=== PATIENT | male | born 1935 | race Caucasian/White ===

== ENCOUNTER 2020-11-19 15:23 | Emergency (ER) | payer MEDICARE ==
[~2020-11-19 15:23] MED LIST: BACTRIM DS TAB1 EACH PO; PREDNISONE 10MG10 MG PO
[2020-11-19 18:05] LABS: BASOPHIL 0.8 % (0-2); EOSINOPHIL 3.5 % (0-7); HCT 44.2 % (42.0-52.0); HGB 14.6 g/dl (13.2-18.0); LYMPHOCYTE 16.3 % (15-48); MCV 87.7 fL (78.0-100.0); MONOCYTE 14.3 % (0-12); MPV 11.2 fL (6.0-9.5); NEUTROPHIL 64.8 % (41-80); NRBC 0; PLT 194 K/uL (150-400); RBC 5.04 M/uL (4.70-6.00); RDW 15.5 % (11.5-14.0); WBC 6.1 K/uL (4.0-10.5)
[2020-11-19 18:23] LABS: BILIRUBIN NEGATIVE (NEGATIVE); BLOOD NEGATIVE Ery/uL (NEGATIVE); CLARITY CLEAR (CLEAR); COLOR YELLOW (YELLOW); GLUCOSE (U) NORMAL (NORMAL); LEUKOCYTES NEGATIVE Leu/uL (NEGATIVE); NITRITE NEGATIVE (NEGATIVE); PROTEIN 2+ mg/dL (NEGATIVE); SPECIFIC GRAVITY 1.025 (1.001-1.030)
[2020-11-19 18:25] LABS: ALBUMIN 3.5 g/dL (3.4-5.0); BILIRUBIN - TOTAL 0.3 mg/dL (0.2-1.0); C-REACTIVE PROTEIN 0.3 mg/dL (<=0.90); CREATININE 1.5 mg/dL (0.67-1.17); GLOBULIN (CALCULATION) 3.3 g/dL; POTASSIUM 4.4 mmol/L (3.5-5.1); TOTAL PROTEIN 6.8 g/dL (6.4-8.2)
[2020-11-19 18:29] LABS: LACTIC ACID 1.2 mmol/L (0.4-1.9)
[2020-11-19 18:33] LABS: SQUAMOUS EPITHELIAL CELLS RARE; URINARY RBC RARE
[2021-02-08] MEDS ORDERED: COREG 3.125M3.125 MG PO (13:17)
[2021-02-08] MEDS ORDERED: LIPITOR20 MG PO (13:17)
[2021-02-08] MEDS ORDERED: PLAVIX75 MG PO ×2 (13:18→13:31)
[2021-02-08] MEDS ORDERED: HYDROCODON-ACE1 EAC6 PO (13:20)
[2021-02-08] MEDS ORDERED: DULERA 100 MCG8.8 GM (13:21)
[2021-02-08] MEDS ORDERED: ISOSORBIDE MONO20 MG PO (13:22)
[2021-02-08] MEDS ORDERED: FLOMAX0.4 MG PO (13:22)
[2021-02-08] MEDS ORDERED: ZESTRIL2.5 MG PO (13:25)
[2021-02-08] MEDS ORDERED: NITROGLYCERIN0.4 MG SL (13:25)
[2021-02-08] MEDS ORDERED: IPRAT-ALBUT 0.5-3 ML (13:27)
[2021-02-08] MEDS ORDERED: IPRAT-ALBUT 0.5-3 ML NEB (13:29)
[2021-02-08] MEDS ORDERED: VENTOLIN (2.5 MG/3 M INH (13:30)
[2021-02-11] MEDS ORDERED: VICODIN 10/3251 EACH PO (11:34)
== END 2020-11-19 19:21 | disposition home or self-care (01) ==
LOC: FER 15:23
PROVIDERS: Internal Medicine
DX: R10.30 Lower abdominal pain, unspecified (principal); I10 Essential (primary) hypertension; J44.9 Chronic obstructive pulmonary disease, unspecified; Z95.1 Presence of aortocoronary bypass graft; Z86.79 Personal history of other diseases of the circulatory system; Z88.0 Allergy status to penicillin
CPT/HCPCS: 36415; 80053; 81001; 83605; 83690; 85025; 86140; 99284; J0500

== ENCOUNTER → 2021-02-11 | Day surgery (SDC) | payer MEDICARE ==
[~2021-02-11] VITALS: Ht 165.1 cm; Wt 64.6 kg
[~2021-02-11] MED LIST changes: +COREG 3.125M3.125 MG PO; +DULERA 100 MCG8.8 GM; +ELIQUIS5 MG PO; +FLOMAX0.4 MG PO; +HYDROCODON-ACE1 EAC6 PO; +IPRAT-ALBUT 0.5-3 ML; +IPRAT-ALBUT 0.5-3 ML NEB; +ISOSORBIDE MONO20 MG PO; +LEVAQUIN750 MG PO; +LIPITOR20 MG PO; +MEDROL 4MG DOSEP4 MG PO; +NITROGLYCERIN0.4 MG SL; +PLAVIX75 MG PO; +VENTOLIN (2.5 MG/3 M INH; +VICODIN 10/3251 EACH PO; +ZESTRIL2.5 MG PO; +ZPAK PO
[2021-02-11 08:52] LABS: MCH 29.4 pg (25.0-31.0); MCHC 33.3 g/dL (32.0-36.0); MCV 88.2 fL (78.0-100.0); MPV 10.4 fL (6.0-9.5); RBC 4.76 M/uL (4.70-6.00); RDW 17.4 % (11.5-14.0); WBC 6.1 K/uL (4.0-10.5)
[2021-02-11 09:12] LABS: INR 0.99 (0.9-1.2); PROTHROMBIN TIME 12.5 SECONDS (11.8-13.4); PTT 28.6 SECONDS (24.4-34.7)
[2021-02-11 09:21] LABS: BUN/CREAT RATIO (CALC) 17.8 RATIO; CREATININE 1.57 mg/dL (0.67-1.17); POTASSIUM 4.6 mmol/L (3.5-5.1)
== END | disposition home or self-care (01) ==
LOC: FAS 07:43
PROVIDERS: Student in an Organized Health Care Education/Training Program
DX: K40.31 Unilateral inguinal hernia, with obstruction, without gangrene, recurrent (principal); J45.909 Unspecified asthma, uncomplicated; H26.9 Unspecified cataract; I50.9 Heart failure, unspecified; I25.2 Old myocardial infarction; M06.9 Rheumatoid arthritis, unspecified; M19.90 Unspecified osteoarthritis, unspecified site; Z79.899 Other long term (current) drug therapy; Z95.1 Presence of aortocoronary bypass graft; Z95.0 Presence of cardiac pacemaker; Z96.659 Presence of unspecified artificial knee joint; Z87.442 Personal history of urinary calculi; Z86.73 Personal history of transient ischemic attack (TIA), and cerebral infarction without residual deficits
CPT/HCPCS: 36415; 80048; 85610; 85730; 93005; J0690; J1644; J2370; J2405; J2704; J2710; J3010; J7120

== ENCOUNTER 2021-02-18 11:09 | Emergency (ER) | payer MEDICARE ==
[~2021-02-18 11:09] MED LIST changes: -ELIQUIS5 MG PO; -LEVAQUIN750 MG PO; -MEDROL 4MG DOSEP4 MG PO; -ZPAK PO
[2021-02-18 11:59] LABS: BILIRUBIN NEGATIVE (NEGATIVE); BLOOD TRACE-INTACT Ery/uL (NEGATIVE); CLARITY CLEAR (CLEAR); COLOR YELLOW (YELLOW); GLUCOSE (U) NORMAL (NORMAL); LEUKOCYTES NEGATIVE Leu/uL (NEGATIVE); NITRITE NEGATIVE (NEGATIVE); PROTEIN NEGATIVE (NEGATIVE); SPECIFIC GRAVITY 1.015 (1.001-1.030); UROBILINOGEN 0.2 mg/dL (0.2-1.0); pH 7.5 (5.0-9.0)
[2021-02-18 12:09] LABS: URINARY RBC RARE
[2021-02-19] MEDS ORDERED: ELIQUIS5 MG PO (05:14)
[2021-02-19] MEDS ORDERED: MEDROL 4MG DOSEP4 MG PO (05:14)
[2021-02-19] MEDS ORDERED: ZPAK PO (05:14)
== END 2021-02-18 12:30 | disposition home or self-care (01) ==
LOC: FER 11:09
PROVIDERS: Emergency Medicine
DX: R33.9 Retention of urine, unspecified (principal); J44.9 Chronic obstructive pulmonary disease, unspecified; Z86.73 Personal history of transient ischemic attack (TIA), and cerebral infarction without residual deficits; Z88.0 Allergy status to penicillin; Z98.890 Other specified postprocedural states; Z86.79 Personal history of other diseases of the circulatory system
CPT/HCPCS: 81001

== ENCOUNTER 2021-02-19 02:54 | Emergency (ER) | payer MEDICARE ==
[2021-02-19 03:57] LABS: BASOPHIL 0.6 % (0-2); EOSINOPHIL 2.9 % (0-7); HCT 41.7 % (42.0-52.0); HGB 13.5 g/dl (13.2-18.0); LYMPHOCYTE 6.3 % (15-48); MCH 28.7 pg (25.0-31.0); MCHC 32.4 g/dL (32.0-36.0); MCV 88.5 fL (78.0-100.0); MONOCYTE 8.8 % (0-12); MPV 9.8 fL (6.0-9.5); NEUTROPHIL 80.4 % (41-80); NRBC 0; PLT 193 K/uL (150-400); RBC 4.71 M/uL (4.70-6.00); RDW 17.4 % (11.5-14.0); WBC 8.1 K/uL (4.0-10.5)
[2021-02-19 04:12] LABS: ALBUMIN 3.4 g/dL (3.4-5.0); BILIRUBIN - TOTAL 0.4 mg/dL (0.2-1.0); BUN/CREAT RATIO (CALC) 17.6 RATIO; CREATININE 1.36 mg/dL (0.67-1.17); GLOBULIN (CALCULATION) 3.5 g/dL; TOTAL PROTEIN 6.9 g/dL (6.4-8.2)
[2021-02-19] MEDS ORDERED: ZPAK PO (05:14)
[2021-02-19] MEDS ORDERED: ELIQUIS5 MG PO (05:14)
[2021-02-19] MEDS ORDERED: MEDROL 4MG DOSEP4 MG PO (05:14)
== END 2021-02-19 05:55 | disposition home or self-care (01) ==
LOC: FER 02:54
PROVIDERS: Emergency Medicine Emergency Medical Services
DX: J44.1 Chronic obstructive pulmonary disease with (acute) exacerbation (principal); R79.1 Abnormal coagulation profile; Z88.0 Allergy status to penicillin
CPT/HCPCS: 36415; 36600; 71045; 80053; 82803; 83880; 84484; 85025; 85379; 94640; 94664; J1940; J2930

== ENCOUNTER 2021-02-21 10:03 | Emergency (ER) | payer MEDICARE ==
[~2021-02-21 10:03] MED LIST changes: +ELIQUIS5 MG PO; +MEDROL 4MG DOSEP4 MG PO; +ZPAK PO
[2021-02-21 12:04] LABS: BILIRUBIN NEGATIVE (NEGATIVE); BLOOD 3+ Ery/uL (NEGATIVE); CLARITY CLOUDY (CLEAR); COLOR YELLOW (YELLOW); GLUCOSE (U) NORMAL (NORMAL); LEUKOCYTES 1+ Leu/uL (NEGATIVE); NITRITE NEGATIVE (NEGATIVE); PROTEIN 2+ mg/dL (NEGATIVE); SPECIFIC GRAVITY >=1.030 (1.001-1.030); UROBILINOGEN 0.2 mg/dL (0.2-1.0); pH 5.5 (5.0-9.0)
[2021-02-21 12:21] LABS: BACTERIA 1+; URINARY RBC TNTC
[2021-02-21 12:22] LABS: AMORPHOUS URATES CRYSTALS MODERATE
== END 2021-02-21 15:15 | disposition home or self-care (01) ==
LOC: FER 10:03
PROVIDERS: Emergency Medicine
DX: R33.9 Retention of urine, unspecified (principal); T83.031A Leakage of indwelling urethral catheter, initial encounter; J44.9 Chronic obstructive pulmonary disease, unspecified; Z95.0 Presence of cardiac pacemaker; Z95.5 Presence of coronary angioplasty implant and graft
CPT/HCPCS: 81001; 87076; 87088; 87186

== ENCOUNTER 2021-04-26 17:29 | Inpatient (IN) | payer MEDICARE ==
[~2021-04-26] VITALS: Ht 157.5 cm; Wt 53.1 kg
[2021-04-26 19:38] LABS: BASOPHIL 0.3 % (0-2); BILIRUBIN NEGATIVE (NEGATIVE); BLOOD 1+ Ery/uL (NEGATIVE); CLARITY CLEAR (CLEAR); COLOR YELLOW (YELLOW); EOSINOPHIL 0.9 % (0-7); GLUCOSE (U) NORMAL (NORMAL); HCT 41.9 % (42.0-52.0); HGB 13.3 g/dl (13.2-18.0); LEUKOCYTES NEGATIVE Leu/uL (NEGATIVE); LYMPHOCYTE 8.2 % (15-48); MCHC 31.7 g/dL (32.0-36.0); MCV 91.3 fL (78.0-100.0); MONOCYTE 1.2 % (0-12); NEUTROPHIL 88.8 % (41-80); NITRITE NEGATIVE (NEGATIVE); NRBC 0; PLT 150 K/uL (150-400); PROTEIN 1+ mg/dL (NEGATIVE); RBC 4.59 M/uL (4.70-6.00); SPECIFIC GRAVITY 1.015 (1.001-1.030); UROBILINOGEN 0.2 mg/dL (0.2-1.0); WBC 3.3 K/uL (4.0-10.5)
[2021-04-26 19:45] LABS: BACTERIA 4+
[2021-04-26 19:54] LABS: ALBUMIN 3.2 g/dL (3.4-5.0); BILIRUBIN - TOTAL 0.7 mg/dL (0.2-1.0); BUN/CREAT RATIO (CALC) 15.7 RATIO; CREATININE 1.4 mg/dL (0.67-1.17); GLOBULIN (CALCULATION) 3.4 g/dL; POTASSIUM 4.5 mmol/L (3.5-5.1); TOTAL PROTEIN 6.6 g/dL (6.4-8.2)
[2021-04-26 20:00] LABS: PRO-BNP 6800 pg/mL (<450)
[2021-04-26 20:06] LABS: LACTIC ACID 3.3 mmol/L (0.4-1.9)
[2021-04-26 20:07] LABS: FT4 (FREE T4) 1.2 ng/dL (0.76-1.46)
[2021-04-26 21:29] LABS: CORONAVIRUS 2019 SARS-COV-2 NEGATIVE (NEGATIVE); INFLUENZA A NAA NEGATIVE (NEGATIVE)
[2021-04-27 04:48] LABS: BASOPHIL 0.2 % (0-2); EOSINOPHIL 0 % (0-7); HCT 34.7 % (42.0-52.0); HGB 11.2 g/dl (13.2-18.0); LYMPHOCYTE 0.9 % (15-48); MCH 29.2 pg (25.0-31.0); MCHC 32.3 g/dL (32.0-36.0); MCV 90.6 fL (78.0-100.0); MONOCYTE 1.3 % (0-12); MPV 11.4 fL (6.0-9.5); NRBC 0; PLT 106 K/uL (150-400); RBC 3.83 M/uL (4.70-6.00); RDW 15.2 % (11.5-14.0)
[2021-04-27 04:54] LABS: NEUTROPHIL 96.9 % (41-80); WBC 11.2 K/uL (4.0-10.5)
[2021-04-27 05:09] LABS: CREATININE 1.97 mg/dL (0.67-1.17); POTASSIUM 3.3 mmol/L (3.5-5.1)
[2021-04-28 06:41] LABS: BUN/CREAT RATIO (CALC) 21.8 RATIO; CREATININE 1.88 mg/dL (0.67-1.17)
[2021-04-28 07:16] LABS: POTASSIUM 4.9 mmol/L (3.5-5.1)
--- NOTE | 2021-04-29 04:38 | NUR ---
04/29/2021 0300 PT CALLS OUT ASKING FOR ASSISTANCE, STATES HE CAN'T BREATHE AND NEEDS HELP BREATHING, OXYGEN SATURATION AT 97% ON ROOM AIR, RN AUSCULATATED RHONCI IN THE UPPER BILATERALLY, RN CALLED ELIGIO NUNO, YAAKOV ORDERED XOPONEX NEBS, CXR AND STATED CONTINUE TO MONITOR, PT RESPONDED WELL TO XOPONEX AND SATURATIONS REMAINED STABLE AROUND 97-99% AND PT COMFORTABLE IN BED AT THIS TIME, WILL CONTINUE TO MONITOR
[2021-04-29 05:26] LABS: BASOPHIL 0.3 % (0-2); EOSINOPHIL 0.1 % (0-7); HCT 33.7 % (42.0-52.0); HGB 11.1 g/dl (13.2-18.0); LYMPHOCYTE 2.5 % (15-48); MCH 29.7 pg (25.0-31.0); MCHC 32.9 g/dL (32.0-36.0); MCV 90.1 fL (78.0-100.0); MONOCYTE 3.2 % (0-12); MPV 12.4 fL (6.0-9.5); NEUTROPHIL 83.9 % (41-80); NRBC 0; RBC 3.74 M/uL (4.70-6.00); RDW 15.1 % (11.5-14.0); WBC 15.4 K/uL (4.0-10.5)
[2021-04-29 05:27] LABS: PLT 97 K/uL (150-400)
[2021-04-29 05:41] LABS: BUN/CREAT RATIO (CALC) 24.4 RATIO; CREATININE 1.56 mg/dL (0.67-1.17); POTASSIUM 3.7 mmol/L (3.5-5.1)
--- NOTE | 2021-04-29 14:16 | NUR ---
04/29/21 Mr. Loving lives alone. Levi Maria, step- grandson, checks in on him. Mr. Loving has a cane and rw. Mr. Loving has requested HH at discharge, He does not have a preference. [facility] agreed to accept. - Mr. Loving was educated to emergency alert systems and LTADD.
[2021-04-30] MEDS ORDERED: LEVAQUIN750 MG PO (12:33)
--- NOTE | 2021-04-30 13:17 | NUR ---
04/30/21 [facility] was notified of discharge / AMA. Report given to JESE Giang RN.
== END 2021-04-30 13:15 | disposition left against medical advice (07) | DRG 871 ==
LOC: FER 17:29 → FTCU 22:20 → FICU 04-27 22:24 → FTCU 04-29 07:26
PROVIDERS: Emergency Medicine Emergency Medical Services; Nurse Practitioner; ADMIT Allergy & Immunology Allergy
PROC: 3E033XZ Introduction of Vasopressor into Peripheral Vein, Percutaneous Approach (ICD-10-PCS; principal; 2021-04-26)
DX: A41.59 Other Gram-negative sepsis (principal); G93.41 Metabolic encephalopathy; J96.01 Acute respiratory failure with hypoxia; I21.A1 Myocardial infarction type 2; R65.21 Severe sepsis with septic shock; I69.354 Hemiplegia and hemiparesis following cerebral infarction affecting left non-dominant side; N39.0 Urinary tract infection, site not specified; I50.20 Unspecified systolic (congestive) heart failure; J98.11 Atelectasis; I42.0 Dilated cardiomyopathy; N17.9 Acute kidney failure, unspecified; I13.0 Hypertensive heart and chronic kidney disease with heart failure and stage 1 through stage 4 chronic kidney disease, or unspecified chronic kidney disease; Z20.822 Contact with and (suspected) exposure to COVID-19; N40.0 Benign prostatic hyperplasia without lower urinary tract symptoms; J43.9 Emphysema, unspecified; I25.10 Atherosclerotic heart disease of native coronary artery without angina pectoris; N18.9 Chronic kidney disease, unspecified; Z96.651 Presence of right artificial knee joint; Z88.0 Allergy status to penicillin; Z95.1 Presence of aortocoronary bypass graft; Z98.890 Other specified postprocedural states; I25.2 Old myocardial infarction; Z95.0 Presence of cardiac pacemaker; Z95.5 Presence of coronary angioplasty implant and graft; Z90.49 Acquired absence of other specified parts of digestive tract; Z80.9 Family history of malignant neoplasm, unspecified; Z82.49 Family history of ischemic heart disease and other diseases of the circulatory system; Z87.891 Personal history of nicotine dependence
CPT/HCPCS: 36415; 36600; 70450; 71045; 71250; 80048; 80053; 81001; 82803; 83605; 83880; 84145; 84439; 84443; 84484; 85025; 87040; 87076; 87077; 87088; 87186; 93005; 94640; 94667; 94668; J0692; J1650; J1940; J2060; J7030; J7040; J7120; U0002